=== PATIENT | male | born 1975 | race Two or more races ===

== ENCOUNTER 2023-06-06 14:45 | Emergency (ER) | payer SELFPAY ==
[2023-06-06 15:56] VITALS: BP 120/89; PULSE 71; RESP 14; TEMP 36.6; O2SAT 98; BMI 24.2
--- NOTE | 2023-06-06 16:14 | CT_ITS ---
EXAM: CT HEAD WITHOUT INTRAVENOUS CONTRAST CLINICAL INDICATION: fall TECHNIQUE: Multiple axial images were obtained of the head without intravenous contrast. This CT exam was performed using one or more of the following dose reduction techniques: automated exposure control, adjustment of the mA and/or kV according to patient size, and/or use of iterative reconstruction technique. RADIATION DOSE: CTDIvol = 44.99 mGy, DLP = 779.24 mGy-cm COMPARISON: No relevant prior studies available. FINDINGS: BRAIN AND EXTRA-AXIAL SPACES: Unremarkable. No intra- or extra-axial hemorrhage. No evidence of acute infarct. No intracranial mass or mass effect. There is preservation of the garcia/white matter interface. Posterior fossa structures are unremarkable. Ventricles are appropriate for age. No hydrocephalus. Basal cisterns are patent. BONES/JOINTS: Unremarkable. No discrete lytic or blastic abnormalities. SINUSES: There is sinus disease. MASTOID AIR CELLS: Unremarkable. Clear. ORBITS: Visualized globes, extraocular muscles, optic nerves and retrobulbar fat appear unremarkable. CT/Brain/Head without Contrast IMPRESSION: No acute findings in the head/brain. Electronically Signed: Brad Ferrer MD at 16:46 EDT ,
--- NOTE | 2023-06-06 16:14 | CT_ITS ---
EXAM: CT CERVICAL SPINE WITHOUT INTRAVENOUS CONTRAST CLINICAL INDICATION: fall TECHNIQUE: Helically acquired images were obtained of the cervical spine without intravenous contrast. 2D reformatted images were reviewed. This CT exam was performed using one or more of the following dose reduction techniques: automated exposure control, adjustment of the mA and/or kV according to patient size, and/or use of iterative reconstruction technique. RADIATION DOSE: CTDIvol = 21.92 mGy, DLP = 447.54 mGy-cm COMPARISON: No relevant prior studies available. FINDINGS: VERTEBRAE: Unremarkable. No fracture. No traumatic subluxation. No discrete lytic or blastic abnormality. Normal alignment. Normal craniocervical junction and cervicothoracic junction. DISCS/SPINAL CANAL/NEURAL FORAMINA: Unremarkable. Disc heights are preserved. No critical stenosis. SOFT TISSUES: Unremarkable. No prevertebral soft tissue swelling. LYMPH NODES: Unremarkable. No cervical adenopathy. LUNG APICES: Unremarkable as visualized. Clear. CT/Spine Cervical without Contras IMPRESSION: No evidence of acute cervical spinal fracture or spondylolisthesis. Electronically Signed: Brad Ferrer MD at 16:44 EDT ,
--- NOTE | 2023-06-06 16:15 | EX.ED.DYSGE1 ---
HPI <FERMÍN Scales - Last Filed: 06/06/23 16:59> History of Present Illness Chief Complaint: Head Injury Narrative Narrative: Patient is a 47-year-old male with no significant ankle history presents to the emergency department after mechanical fall while working. Patient states he was on a ladder, when the ladder slipped and he fell backward striking his head and back. Patient states he did get dazed however did not lose consciousness. He did have blood from his left arm from a piece of metal that struck the inner part of his left arm. When the squad got there, he saw the blood and had a near syncopal episode. He states this has happened before secondary to seeing blood. He denies any other complaints. He denies any lower back issues. Patient denies being on any blood thinners, patient does not intoxicated. PFSH <FERMÍN Scales - Last Filed: 06/06/23 16:59> [facility] Medical History no medical history Allergy/AdvReac Type Severity Reaction Status Date / Time No Known Allergies Allergy Verified 06/06/23 15:56 Social History Smoking Status: Current every day smoker tobacco type: cigarettes ROS <JIM ScalesC - Last Filed: 06/06/23 16:59> ROS ED ROS Narrative Constitutional: Negative for fever, chills, weight loss, weakness Eyes: Negative for vision loss, vision change, double vision ENT: Negative for any sore throat, ear pain, congestion Cardiovascular: Negative for any chest pain, tightness, palpitations Respiratory: Negative for any cough, sputum production, hemoptysis, dyspnea, dyspnea on exertion, orthopnea Gastrointestinal: Negative for any abdominal pain, nausea, vomiting, diarrhea, constipation, blood in stool, blood in vomit : Negative for any urinary frequency, dysuria, retention, blood in urine Muscle skeletal: Negative for any muscle joint pain, stiffness, myalgias, arthralgias, neck pain, back pain Neurological: Negative for any syncope, numbness or tingling, dizziness. Positive for headache, near syncope Skin: Negative for any rashes, lumps, itching, abrasions. Positive for laceration to the left inner arm Psychiatric: Negative for any depression, anxiety, stress, suicidal ideation, homicidal ideation Hematologic: Negative for any easy bruising, excessive bruising, easy bleeding Allergies: Negative for any eczema, hives, rash EXAM <FERMÍN Scales - Last Filed: 06/06/23 16:59> Physical Exam Narrative Exam Narrative: Vital signs reviewed. HEET: Head normocephalic atraumatic, TMs clear bilaterally. Posterior pharynx is clear, moist mucous membranes. Nares clear bilaterally. Pupils are equal round reactive to light. Negative for any hemotympanum, septal hematoma. Patient is alert and orient x4. Acting appropriate. Neck: Supple with no lymphadenopathy or tenderness. No signs of meningismus, negative jolt sign. Cardiac: Regular rate and rhythm no murmurs gallops or rubs, equal peripheral pulses bilaterally. Respiratory: Lungs clear to auscultation bilaterally. No chest tenderness. Abdomen: Soft, nontender, nondistended. No abdominal bruit or pulsatile masses. No hepatosplenomegaly Extremities: No peripheral edema, no signs of gross trauma or deformity. Active full range of motion of all extremities. Neuro: Cranial nerves II through XII intact, no focal neurological deficits. Skin: Clean dry and intact with no rash, purpura, petechiae, vesicles or pustules. Patient has a 3 cm vertical laceration to the inner aspect of the left arm distal to the axilla. Backs/flank: No CVA tenderness, no midline spinal tenderness, no deformity. Psych: Normal mood and affect. No SI, HI or acute psychosis. Const Vital Signs: 06/06/23 15:56 06/06/23 16:55 Temperature 98 F Temperature Source Temporal Pulse Rate 71 Respiratory Rate 14 Respiratory Effort Normal Non-Labored Blood Pressure 120/89 H Blood Pressure Mean 99 Pulse Ox 98 Oxygen Delivery Method Room Air Positive well nourished and well developed General Appearance ED: well developed <Dr. Manas Bee MD - Last Filed: 06/06/23 17:09> Physical Exam Const Vital Signs: 06/06/23 15:56 06/06/23 16:55 Temperature 98 F Temperature Source Temporal Pulse Rate 71 Respiratory Rate 14 Respiratory Effort Normal Non-Labored Blood Pressure 120/89 H Blood Pressure Mean 99 Pulse Ox 98 Oxygen Delivery Method Room Air MDM <FERMÍN Scales - Last Filed: 06/06/23 16:59> MDM Radiography Diagnostic Testing: Clinical Impression(s) from Imaging Studies Brain CT 06/06/23 16:14 IMPRESSION: No acute findings in the head/brain. Electronically Signed: Brad Ferrer MD at 16:46 EDT , Cervical Spine CT 06/06/23 16:14 IMPRESSION: No evidence of acute cervical spinal fracture or spondylolisthesis. Electronically Signed: Brad Ferrer MD at 16:44 EDT , Treatment and Re-Evaluation :: All radiologic examinations were read, reviewed by the emergency department attending. From these reads, a plan of care will be put in place. Patient appears generally well, patient appears nontoxic, vital signs are stable. Patient presents to the emergency department with complaints of a head injury from a fall as well as a laceration left arm. Secondary to the height of the ladder being Approximately 6 feet, patient did receive a CT scan of the head as well as cervical spine ruling out any skull fracture, intracranial bleeding, cervical spine fracture. The CTs of the brain and cervical spine were gross unremarked for any acute process. Patient was updated on his tetanus vaccination 2 years ago. He did have a 3 cm vertical laceration of the left arm. I did place 6 upon ruptured sutures in the area, patient tolerated well. Patient will have these removed in 7 to 10 days. Patient struck to return for any worsening symptoms. All questions answered. Patient struck to ice, perform gentle stretching. Patient does have a abrasion to the top of his head however this does not require suturing. Patient stable for discharge <Dr. Manas Bee MD - Last Filed: 06/06/23 17:09> [facility] Narrative Medical decision making narrative: I have personally performed a face to face assessment of the patient and have reviewed the CAESAR Note. I performed a substantive portion of the visit including all aspects of the following. My painter findings include: History is 47-year-old male was on a ladder about 6 feet above his deck. The ladder slipped out from under him and he fell backwards hit his head and lacerated his left upper arm medially. No LOC. No significant neck pain. Brought in by squad. He had a near syncopal episode because of the laceration to his arm. He denies any severe headache. He is on no blood thinners. Denies other complaints. Tetanus up-to-date within the last 2 to 3 years. Exam is [well-appearing 47-year-old male. Vital signs stable afebrile. HEENT exam gives round reactive light. No facial or scalp trauma other than a very superficial abrasion to the top of the scalp. No hematoma. No active bleeding. Nothing needs to be sewn. Trachea midline. C-spine, T-spine, L-spine and back are nontender. Normal range of motion to his neck. Lungs clear to auscultation. Chest wall nontender. Ribs nontender. Heart regular rhythm rate about 70 no murmur. Abdomen soft nontender. Pelvic girdle intact. Moving all 4 extremities. Normal range of motion. 5 and 5 cooker sulfate strength. Dorsi plantarflexion intact. Ankles, knees and hips are nontender. Neurologically is awake and alert with no focal motor deficit.] Medical Decision Making [47-year-old male evaluated with her [employer]. CT of his head and neck are unremarkable. He is awake and alert. His left arm has been suture repaired. He will be discharged home.] Other additions or changes: [None] History & Record Review Discussion w/independent historian: Patient Radiography Diagnostic Testing: Clinical Impression(s) from Imaging Studies Brain CT 06/06/23 16:14 IMPRESSION: No acute findings in the head/brain. Electronically Signed: Brad Ferrer MD at 16:46 EDT , Cervical Spine CT 06/06/23 16:14 IMPRESSION: No evidence of acute cervical spinal fracture or spondylolisthesis. Electronically Signed: Brad Ferrer MD at 16:44 EDT , Procedures <FERMÍN Scales - Last Filed: 06/06/23 16:59> Lacerations Laceration, left arm: Length: 1.18 in Depth: Skin Shape: Linear Prep: Sterile Conditions Laceration repair: Lidocaine Irrigated (ml): 100 Number of Sutures/[place]: 7 Suture Information: Ethilon and 5-0 Comment: Patient tolerated well, sterile gloves, sterile drapes were used. Discharge Plan Triage Chief Complaint: Head Injury ED Midlevel Provider: Portillo Mak ED Provider: Manas Bee Dx/Rx/DC Orders Clinical Impression: Concussion, Arm laceration, Fall Instructions: Concussion Dc, ED Laceration: All Closures Primary Care Provider: Care Physician,No Primary Referrals: Care Physician,No Primary [Primary Care Provider] - Activity Restrictions/Additional Instructions: Suture removed and 7 to 10 days Motrin and Tylenol for pain. Follow-up with your doctor returning her stitches out. Disposition Disposition: Home, Self Care
== END 2023-06-06 17:27 | disposition home or self-care (01) ==
PROVIDERS: Emergency Provider Emergency Medicine; Visit Provider Emergency Medicine
DX: S06.0X0A Concussion without loss of consciousness, initial encounter (principal); W11.XXXA Fall on and from ladder, initial encounter; F17.210 Nicotine dependence, cigarettes, uncomplicated; S41.112A Laceration without foreign body of left upper arm, initial encounter; W22.8XXA Striking against or struck by other objects, initial encounter
CPT/HCPCS: 12002; 70450; 72125; 99283